=== PATIENT | female | born 1965 | race Hispanic/Latino ===

== ENCOUNTER → 2022-10-31 | Outpatient (CLI) | payer BC | END | disposition home or self-care (01) | LOC: RAH 10:00 | PROVIDERS: ATTEND Orthopaedic Surgery | DX: M17.11 Unilateral primary osteoarthritis, right knee (principal); M17.2 Bilateral post-traumatic osteoarthritis of knee | CPT/HCPCS: 73700 ==

== ENCOUNTER 2022-11-16 05:58 | Observation (INO) | payer BC ==
[2022-11-11 11:30] LABS: BASOPHILS % (AUTO) 0.8 % (0.0-5.0); EOSINOPHILS % (AUTO) 0.6 % (0.0-8.0); LYMPHOCYTES % (AUTO) 34.4 % (21.0-51.0); MEAN CORPUSCULAR HEMOGLOBIN 26.7 pg (27.0-33.0); MEAN CORPUSCULAR HGB CONC 31.3 g/dL (32.0-36.0); MEAN CORPUSCULAR VOLUME 85.2 fL (79-99); MONOCYTES % (AUTO) 8.5 % (3.0-13.0); NEUTROPHILS % (AUTO) 55.4 % (40.0-77.0); PLATELET COUNT (AUTO) 220 K/uL (130-400); RED BLOOD CELL COUNT(AUTO) 4.46 MIL/uL (4.00-5.50); RED CELL DISTRIBUTION WIDTH 13.9 % (11.0-15.5); WHITE BLOOD COUNT (AUTO) 6.2 K/uL (4.8-10.8)
[2022-11-11 11:44] LABS: CREATININE 0.7 mg/dL (0.5-1.5); POTASSIUM 3.8 mmol/L (3.5-5.1)
[2022-11-11 11:47] VITALS: BP 128/82
[2022-11-11 11:56] LABS: INR 0.93 (0.85-1.15); PROTHROMBIN TIME 10.2 SEC (9.6-11.6)
[2022-11-11 11:58] LABS: PARTIAL THROMBOPLASTIN TIME 28.2 SEC (26.3-35.5)
[~2022-11-16] VITALS: Ht 152.4 cm; Wt 76.8 kg
[2022-11-16] VITALS (31 sets, daily range): BP systolic 104–129; BP diastolic 61–81
[~2022-11-16 05:58] MED LIST: FERR324T PO; LISI1TAB51 PO; MULT-1367 PO; PANT40TA54 PO; ROSU10TA28 PO
[2022-11-16] MEDS: CLINDAMYCIN IVPB 600MG/50ML 50 ML IV SCH ×2 (06:00→07:58)
[2022-11-16] MEDS ORDERED: GABA600T10 PO (06:31)
[2022-11-16] MEDS: LACTATED RINGERS 1000ML 1,000 ML IV SCH ×2 (06:50→13:31)
[2022-11-16] MEDS ORDERED: TRANEXAMIC ACID 1000MG/10ML ONE (07:04)
[2022-11-16] MEDS ORDERED: SUCCINYLCHOLINE 200MG/10ML SYR ONE (07:12)
[2022-11-16] MEDS ORDERED: LIDOCAINE PF 100MG/5ML (2%) SYRINGE 5ML ONE (07:12)
[2022-11-16] MEDS ORDERED: PROPOFOL 10 MG/ML 20ML VIAL IV ONE (07:13)
[2022-11-16] MEDS ORDERED: ONDANSETRON 4MG INJ ONE (07:13)
[2022-11-16] MEDS ORDERED: GLYCOPYRROLATE 1 MG/5 ML SYRINGE ONE (07:13)
[2022-11-16] MEDS ORDERED: NEOSTIGMINE 5MG/5ML SYR IV ONE (07:13)
[2022-11-16] MEDS ORDERED: MIDAZOLAM HCL 1 MG/ML 2ML VIAL ONE (07:13)
[2022-11-16] MEDS ORDERED: DEXAMETHASONE SOD PHOSPHATE 10MG/ML 1ML VIAL ONE (07:13)
[2022-11-16] MEDS ORDERED: ROCURONIUM 10MG/1ML SYR 10 MG/ML ML ONE (07:14)
[2022-11-16] MEDS ORDERED: FENTANYL CITRATE PF 50 MCG/1 ML 2ML VIAL ONE (07:14)
[2022-11-16] MEDS ORDERED: PHENYLEPHRINE HCL 10 MG/ML 1ML VIAL IV ONE (07:58)
[2022-11-16] MEDS ORDERED: POTASSIUM CHLORIDE 10% ELIXIR 20 MEQ/15 ML UDCUP PO PRN (08:30)
[2022-11-16] MEDS ORDERED: POTASSIUM CHLORIDE 20MEQ/100ML 100 ML IV PRN (08:30)
[2022-11-16] MEDS: 0.9%NACL 1000ML 1,000 ML IV SCH ×2 (08:30→17:18)
[2022-11-16] MEDS ORDERED: KCL 20 MEQ ERTAB PO PRN (08:30)
[2022-11-16] MEDS ORDERED: MORPHINE 4 MG SYG IVP PRN (08:30)
[2022-11-16] MEDS ORDERED: PANTOPRAZOLE 40 MG TAB DR PO PRN (08:30)
[2022-11-16] MEDS ORDERED: ONDANSETRON 4MG INJ IVP PRN (08:30)
[2022-11-16] MEDS: HYDROCHLOROTHIAZIDE 25 MG TABLET PO SCH (09:00)
[2022-11-16] MEDS: MULTIVITAMIN TABLET PO SCH (09:00)
[2022-11-16] MEDS: FERROUS GLUCONATE 324MG TABLET.DR PO SCH (09:00)
[2022-11-16] MEDS: ASPIRIN 81 MG EC TAB PO SCH ×2 (09:00→20:42)
[2022-11-16] MEDS: FAMOTIDINE 20MG TAB PO SCH ×2 (09:00→20:41)
[2022-11-16] MEDS: LISINOPRIL 20 MG TABLET PO SCH (09:00)
[2022-11-16] MEDS: POLYETHYLENE GLYCOL 3350 17 GM POWD.PACK PO SCH (09:00)
[2022-11-16] MEDS ORDERED: KETOROLAC 30MG VIAL (30MG/ML) ONE (09:25)
[2022-11-16] MEDS: ACETAMINOPHEN 1,000 MG/100 ML VIAL IV SCH ×3 (10:08→19:34)
[2022-11-16] MEDS: IBUPROFEN 800MG + NS 250ML IV SCH ×2 (13:39→19:34)
[2022-11-16] MEDS: CEFAZOLIN SODIUM 2 GM VIAL IVPB SCH ×2 (13:39→21:18)
[2022-11-16] MEDS: TRAMADOL HCL 50 MG TABLET PO SCH ×2 (13:40→17:17)
[2022-11-16] MEDS: GABAPENTIN 300 MG CAPSULE PO SCH (20:42)
[2022-11-16] MEDS: Rosuvastatin Calcium 10 MG PO SCH (20:44)
[2022-11-17] VITALS (7 sets, daily range): BP systolic 82–139; BP diastolic 43–88
[2022-11-17] MEDS: TRAMADOL HCL 50 MG TABLET PO SCH ×4 (00:18→16:59)
[2022-11-17] MEDS: IBUPROFEN 800MG + NS 250ML IV SCH (03:40)
[2022-11-17] MEDS: 0.9%NACL 1000ML 1,000 ML IV SCH (04:30)
[2022-11-17 05:01] LABS: MEAN CORPUSCULAR HEMOGLOBIN 26.7 pg (27.0-33.0); MEAN CORPUSCULAR VOLUME 83.3 fL (79-99); RED BLOOD CELL COUNT(AUTO) 3.6 MIL/uL (4.00-5.50); RED CELL DISTRIBUTION WIDTH 13.9 % (11.0-15.5); WHITE BLOOD COUNT (AUTO) 11.8 K/uL (4.8-10.8)
[2022-11-17 05:11] LABS: CREATININE 0.9 mg/dL (0.5-1.5); POTASSIUM 4.1 mmol/L (3.5-5.1)
[2022-11-17] MEDS: MULTIVITAMIN TABLET PO SCH (08:47)
[2022-11-17] MEDS: FAMOTIDINE 20MG TAB PO SCH ×2 (08:47→19:48)
[2022-11-17] MEDS: FERROUS GLUCONATE 324MG TABLET.DR PO SCH (08:47)
[2022-11-17] MEDS: POLYETHYLENE GLYCOL 3350 17 GM POWD.PACK PO SCH (08:47)
[2022-11-17] MEDS: ASPIRIN 81 MG EC TAB PO SCH ×2 (08:47→19:48)
[2022-11-17] MEDS: HYDROCHLOROTHIAZIDE 25 MG TABLET PO SCH (08:50)
[2022-11-17] MEDS: LISINOPRIL 20 MG TABLET PO SCH (08:50)
[2022-11-17] MEDS: HYDROCODONE/ACETAMINOPHEN 5/325 MG TAB PO PRN ×2 (15:07→22:03)
[2022-11-17] MEDS: GABAPENTIN 300 MG CAPSULE PO SCH (19:49)
[2022-11-17] MEDS: Rosuvastatin Calcium 10 MG PO SCH (19:49)
[2022-11-18] VITALS: BP 101/60
[2022-11-18] MEDS: HYDROCODONE/ACETAMINOPHEN 5/325 MG TAB PO PRN (02:00)
[2022-11-18 04:00] VITALS: BP 89/50
[2022-11-18] MEDS: TRAMADOL HCL 50 MG TABLET PO SCH ×3 (06:00→12:53)
[2022-11-18] MEDS: HYDROCHLOROTHIAZIDE 25 MG TABLET PO SCH (09:00)
[2022-11-18] MEDS: LISINOPRIL 20 MG TABLET PO SCH (09:00)
[2022-11-18] MEDS: FAMOTIDINE 20MG TAB PO SCH (09:24)
[2022-11-18] MEDS: POLYETHYLENE GLYCOL 3350 17 GM POWD.PACK PO SCH (09:24)
[2022-11-18] MEDS: ASPIRIN 81 MG EC TAB PO SCH (09:24)
[2022-11-18] MEDS: MULTIVITAMIN TABLET PO SCH (09:24)
[2022-11-18] MEDS: FERROUS GLUCONATE 324MG TABLET.DR PO SCH (09:24)
[2022-11-18] MEDS: HYDROCODONE/ACETAMINOPHEN 10/325 MG TAB PO PRN ×2 (09:25→15:46)
[2022-11-18 09:34] VITALS: BP 119/71
[2022-11-18 12:11] VITALS: BP 122/71
[2022-11-19] MEDS ORDERED: BISACODYL 10 MG SUPP.RECT RC PRN (08:30)
== END 2022-11-18 17:00 | disposition home or self-care (01) ==
LOC: DAH 05:58 → DAHIP 05:59 → DAH 05:59 → 4CH 11:45
PROVIDERS: ADMIT Orthopaedic Surgery; ATTEND Orthopaedic Surgery
DX: M17.11 Unilateral primary osteoarthritis, right knee (principal); Z20.822 Contact with and (suspected) exposure to COVID-19; I10 Essential (primary) hypertension; M25.561 Pain in right knee; E78.00 Pure hypercholesterolemia, unspecified; Z79.899 Other long term (current) drug therapy; Z98.890 Other specified postprocedural states
CPT/HCPCS: 80048 ×2; 85025; 85610; 85730; 87426; 36415 ×2; 87641; 27447; 64445; 96365; 96366 ×2; 96367; 96368; 64447; 96375; 85027; 97161; 97039 ×4; 97116 ×4; 97530 ×3; A6260; C1776 ×4; G0378 ×51; A4663; J7030; J7120 ×2; J3010; J3490 ×3; J0330; J1100; J2710; J2001; J2250; J2704; J2405; J1885; J2370; J1741 ×3; J0690 ×2; A6223; G0168; A4649 ×4; A6212; A5120 ×2; A4215; A4223; A4222; A4221

== ENCOUNTER 2023-04-11 07:07 | Observation (INO) | payer BC ==
[2023-04-07 13:15] VITALS: BP 127/77; PULSE 76; RESP 19
[~2023-04-11] VITALS: Ht 153.7 cm; Wt 77.9 kg
[2023-04-11] VITALS (29 sets, daily range): BP systolic 120–151; BP diastolic 64–83; PULSE 65–100; RESP 14–20; O2SAT 96
[2023-04-11] MEDS ORDERED: LACTATED RINGERS 1000ML 1,000 ML IV ONE (07:21)
[2023-04-11] MEDS ORDERED: CLINDAMYCIN IVPB 600MG/50ML 50 ML IV ONE (07:22)
[2023-04-11] MEDS ORDERED: GABA300C PO (07:57)
[2023-04-11] MEDS ORDERED: PANTOPRAZOLE 40 MG TAB DR PO PRN (08:00)
[2023-04-11] MEDS ORDERED: SUCCINYLCHOLINE 200MG/10ML SYR ONE (08:52)
[2023-04-11] MEDS ORDERED: LIDOCAINE PF 100MG/5ML (2%) SYRINGE 5ML ONE (08:52)
[2023-04-11] MEDS ORDERED: DEXAMETHASONE SOD PHOSPHATE 10MG/ML 1ML VIAL ONE (08:53)
[2023-04-11] MEDS ORDERED: ONDANSETRON 4MG INJ ONE ×2 (08:53→12:10)
[2023-04-11] MEDS ORDERED: ROCURONIUM 10MG/1ML SYR 10 MG/ML ML ONE ×2 (08:53→09:39)
[2023-04-11] MEDS ORDERED: MIDAZOLAM HCL 1 MG/ML 2ML VIAL ONE (08:53)
[2023-04-11] MEDS ORDERED: PROPOFOL 10 MG/ML 20ML VIAL IV ONE (08:53)
[2023-04-11] MEDS ORDERED: GLYCOPYRROLATE 1 MG/5 ML SYRINGE ONE (08:53)
[2023-04-11] MEDS ORDERED: FENTANYL CITRATE PF 50 MCG/1 ML 2ML VIAL ONE (09:19)
[2023-04-11] MEDS ORDERED: PHENYLEPHRINE HCL 10 MG/ML 1ML VIAL IV ONE (09:46)
[2023-04-11] MEDS ORDERED: TRANEXAMIC ACID 1000MG/10ML ONE (10:03)
[2023-04-11] MEDS ORDERED: FENTANYL CITRATE PF 50 MCG/1 ML 5ML AMP IV ONE (10:40)
[2023-04-11] MEDS ORDERED: KETAMINE 50MG/ML SYRINGE 50 MG/ML DISP.SYRIN ONE (10:50)
[2023-04-11] MEDS ORDERED: NEOSTIGMINE METHYLSULFATE 1MG/ML IV ONE (11:17)
[2023-04-11] MEDS: MEPERIDINE-PF 25 MG/ML SYG ONE ×2 (12:25→12:27)
[2023-04-11] MEDS ORDERED: ACETAMINOPHEN 1,000 MG/100 ML VIAL IV ONE (12:39)
[2023-04-11] MEDS: ACETAMINOPHEN 1,000 MG/100 ML VIAL IV SCH ×2 (12:57→18:30)
[2023-04-11] MEDS ORDERED: POTASSIUM CHLORIDE 10% ELIXIR 20 MEQ/15 ML UDCUP PO PRN (13:00)
[2023-04-11] MEDS ORDERED: POTASSIUM CHLORIDE 20MEQ/100ML 100 ML IV PRN (13:00)
[2023-04-11] MEDS ORDERED: HYDROCODONE/ACETAMINOPHEN 5/325 MG TAB PO PRN (13:00)
[2023-04-11] MEDS ORDERED: KCL 20 MEQ ERTAB PO PRN (13:00)
[2023-04-11] MEDS ORDERED: ONDANSETRON 4MG INJ IVP PRN (13:00)
[2023-04-11] MEDS ORDERED: 0.9%NACL 1000ML 1,000 ML IV SCH (13:00)
[2023-04-11] MEDS: FERROUS GLUCONATE 324MG TABLET.DR PO SCH (13:30)
[2023-04-11] MEDS: MULTIVITAMIN TABLET PO SCH (13:30)
[2023-04-11] MEDS: MORPHINE 4 MG SYG IVP PRN ×2 (13:30→19:52)
[2023-04-11] MEDS: LISINOPRIL 20 MG TABLET PO SCH (13:30)
[2023-04-11] MEDS: HYDROCODONE/ACETAMINOPHEN 10/325 MG TAB PO PRN (14:26)
[2023-04-11] MEDS: IBUPROFEN 800MG + NS 250ML IV SCH (15:45)
[2023-04-11] MEDS: CLINDAMYCIN IVPB 600MG/50ML 100 ML IV SCH (18:30)
[2023-04-11] MEDS: FAMOTIDINE 20MG TAB PO SCH (19:51)
[2023-04-11] MEDS: ASPIRIN 81 MG EC TAB PO SCH (19:52)
[2023-04-11] MEDS ORDERED: (Rosuvastatin Calcium 10 MG) PO SCH (21:00)
[2023-04-12] VITALS: BP 134/82; PULSE 85; RESP 20
[2023-04-12] MEDS: IBUPROFEN 800MG + NS 250ML IV SCH ×2 (00:10→09:21)
[2023-04-12] MEDS: HYDROCODONE/ACETAMINOPHEN 10/325 MG TAB PO PRN ×3 (00:11→11:18)
[2023-04-12] MEDS ORDERED: ACETAMINOPHEN 1,000 MG/100 ML VIAL IV ONE (02:14)
[2023-04-12] MEDS: ACETAMINOPHEN 1,000 MG/100 ML VIAL IV SCH (02:15)
[2023-04-12] MEDS: CLINDAMYCIN IVPB 600MG/50ML 100 ML IV SCH (03:12)
[2023-04-12 04:00] VITALS: BP 126/73; PULSE 77; RESP 20
[2023-04-12 04:01] LABS: MEAN CORPUSCULAR HEMOGLOBIN 25.2 pg (27.0-33.0); MEAN CORPUSCULAR HGB CONC 31.1 g/dL (32.0-36.0); MEAN CORPUSCULAR VOLUME 81.1 fL (79-99); RED BLOOD CELL COUNT(AUTO) 4.44 MIL/uL (4.00-5.50); RED CELL DISTRIBUTION WIDTH 16.2 % (11.0-15.5); WHITE BLOOD COUNT (AUTO) 13.1 K/uL (4.8-10.8)
[2023-04-12 04:43] LABS: CREATININE 0.8 mg/dL (0.5-1.5); POTASSIUM 4.4 mmol/L (3.5-5.1)
[2023-04-12 08:00] VITALS: BP 144/80; PULSE 74; RESP 18; O2SAT 96
[2023-04-12] MEDS ORDERED: POLYETHYLENE GLYCOL 3350 17 GM POWD.PACK PO SCH (09:00)
[2023-04-12] MEDS: ASPIRIN 81 MG EC TAB PO SCH (09:24)
[2023-04-12] MEDS: FAMOTIDINE 20MG TAB PO SCH (09:24)
[2023-04-12] MEDS: LISINOPRIL 20 MG TABLET PO SCH (09:24)
[2023-04-12] MEDS: MULTIVITAMIN TABLET PO SCH (09:24)
[2023-04-12] MEDS: FERROUS GLUCONATE 324MG TABLET.DR PO SCH (09:24)
[2023-04-12 11:30] VITALS: BP 134/78; PULSE 72; RESP 17
[2023-04-14] MEDS ORDERED: BISACODYL 10 MG SUPP.RECT RC PRN (13:00)
== END 2023-04-12 16:30 | disposition home or self-care (01) ==
LOC: DAH 07:07 → DAHIP 07:08 → DAH 07:08 → 4AH 12:50
PROVIDERS: ADMIT Orthopaedic Surgery; ATTEND Orthopaedic Surgery
DX: M17.12 Unilateral primary osteoarthritis, left knee (principal); I10 Essential (primary) hypertension; E78.00 Pure hypercholesterolemia, unspecified; Z79.82 Long term (current) use of aspirin
CPT/HCPCS: 87641; 27447; 96376 ×2; 96365; 96366 ×2; 96375; 97161; 97530 ×4; 96367; 80048; 85027; 36415; 97116 ×2; A6260; C1713; G0378 ×25; A4663; J7030; A4649 ×2; J7120; J3010 ×2; J3490 ×6; J0330; J1100; J2001; J2250; J2704; J2405 ×2; J2270 ×2; J2710; J2175; J2371; J1741 ×3; A6223; G0168; A4930; A6212; C1776 ×4; A4215; A4223; A4222; A4221